=== PATIENT | female | born 1995 | race Caucasian/White ===

== ENCOUNTER 2020-05-07 01:03 | Emergency (ER) | payer OTHER ==
[2020-05-07] MEDS ORDERED: MEDROL 4MG DOSEP4 MG PO (03:11)
== END 2020-05-07 03:45 | disposition home or self-care (01) ==
LOC: FER 01:03
DX: B34.9 Viral infection, unspecified (principal); K13.79 Other lesions of oral mucosa; Z88.1 Allergy status to other antibiotic agents
CPT/HCPCS: 99282; J7512

== ENCOUNTER 2020-11-22 08:51 | Emergency (ER) | payer OTHER ==
[~2020-11-22 08:51] MED LIST: MEDROL 4MG DOSEP4 MG PO
[2020-11-22 10:21] LABS: BASOPHIL 0.2 % (0-2); EOSINOPHIL 3.2 % (0-5); HCT 40.8 % (37.0-47.0); HGB 13.1 g/dl (12.5-16.0); LYMPHOCYTE 18.9 % (15-48); MCHC 32.1 g/dL (32.0-36.0); MONOCYTE 6.8 % (0-12); MPV 10.6 fL (6.0-9.5); NEUTROPHIL 70.6 % (41-80); NRBC 0; PLT 298 K/uL (150-400); RBC 4.86 M/uL (4.20-5.40); RDW 14.6 % (11.5-14.0); WBC 6.2 K/uL (4.0-10.5)
[2020-11-22 10:21] LABS: BILIRUBIN NEGATIVE (NEGATIVE); BLOOD 1+ Ery/uL (NEGATIVE); CLARITY CLEAR (CLEAR); COLOR ORANGE (YELLOW); GLUCOSE (U) NORMAL (NORMAL); LEUKOCYTES NEGATIVE Leu/uL (NEGATIVE); NITRITE NEGATIVE (NEGATIVE); PROTEIN NEGATIVE (NEGATIVE); UROBILINOGEN 0.2 mg/dL (0.2-1.0)
[2020-11-22 10:41] LABS: BACTERIA 4+; SQUAMOUS EPITHELIAL CELLS 20-50; URINARY WBC RARE
[2020-11-22 11:33] LABS: ALBUMIN 3.4 g/dL (3.4-5.0); BILIRUBIN - TOTAL 0.3 mg/dL (0.2-1.0); BUN/CREAT RATIO (CALC) 7.1 RATIO; CREATININE 0.7 mg/dL (0.51-0.95); POTASSIUM 4.1 mmol/L (3.5-5.1); TOTAL PROTEIN 7.4 g/dL (6.4-8.2)
== END 2020-11-22 14:09 | disposition home or self-care (01) ==
LOC: FER 08:51
PROVIDERS: Emergency Medicine
DX: U07.1 COVID-19 (principal); R94.5 Abnormal results of liver function studies; E66.9 Obesity, unspecified; Z23 Encounter for immunization; Z88.1 Allergy status to other antibiotic agents
CPT/HCPCS: 36415; 71045; 71275; 80053; 81001; 84443; 85025; 85379; 87880; M0243; Q0244; Q9967; U0002